=== PATIENT | male | born 1950 | race Two or more races ===

== ENCOUNTER 2017-11-29 07:34 | Outpatient (CLI) | payer OTHER | END 2017-11-29 08:00 | disposition home or self-care (01) | LOC: EDBD 07:34 → NUCLEAR 07:34 | DX: R07.89 Other chest pain (principal); R94.31 Abnormal electrocardiogram [ECG] [EKG] | CPT/HCPCS: 78452; 93017; A9500 ==

== ENCOUNTER → 2021-04-22 | Outpatient (CLI) | payer OTHER | END | disposition home or self-care (01) | LOC: MRI 06:13 | PROVIDERS: ATTEND Obstetrics & Gynecology | DX: G93.89 Other specified disorders of brain (principal); Z86.73 Personal history of transient ischemic attack (TIA), and cerebral infarction without residual deficits | CPT/HCPCS: 70551 ==